=== PATIENT | male | born 1940 | race Caucasian/White ===

== ENCOUNTER 2017-05-24 22:33 | Emergency (ER) | payer OTHER ==
[~2017-05-24] VITALS: Ht 182.9 cm; Wt 85.3 kg
[2017-05-24 22:39] VITALS: BP 164/96; PULSE 75; RESP 14; TEMP 98; O2SAT 95
[2017-05-24] MEDS ORDERED: TRIAMCINOLONE ACETONIDE 40 MG/ML VIAL IM ONE (23:00)
[2017-05-24] MEDS ORDERED: PERM5CRE11 TOPICAL (23:04)
--- NOTE | 2017-05-24 23:04 | PD ---
HPI . Skin problem Chief Complaint: Skin Problem Time Seen by Provider: 22:35 Travel History International Travel<30 days: No Contact w/Intl Traveler<30days: No Traveled to known affect area: No History of Present Illness HPI 76-year-old male complains of having actually pruritic rash over extremities and trunk over the past 2 days. Patient states he had a similar rash about 20 years ago and got a shot for it but does not recall further than those details. Patient denies any fevers chills sweats, nausea, diarrhea, stiff neck, headache. Patient's granddaughter thinks she is developing a similar rash. [facility] Past Medical History Narrative Medical Past medical history reviewed Diminished Hearing: Yes (DEAF; USES SIGN LANGUAGE) Genitourinary: Yes (UNKNOWN PROSTATE Hx DEALING WITH BURNING URINATION) Past Surgical History Genitourinary Surgery: Yes (UNKNOWN PROCEDURE DEALING WITH BURNIING URINATION) Social History Alcohol Use: Yes (RARELY) Tobacco Use: No Substance Use: No Allergies-Medications (Allergen,Severity, Reaction): Coded Allergies: No Known Allergies (Verified , 10/25/15) Reported Meds & Prescriptions Reported Meds & Active Scripts Active No Active Prescriptions or Reported Medications Narrative Medication Allergies and medications reviewed Review of Systems General / Constitutional: No: Fever Eyes: No: Visual changes HENT: No: Headaches Cardiovascular: No: Chest Pain or Discomfort Respiratory: No: Shortness of Breath Gastrointestinal: No: Abdominal Pain Genitourinary: No: Dysuria Musculoskeletal: No: Pain Skin: Positive Rash Neurologic: No: Weakness Psychiatric: No: Depression Endocrine: No: Polydipsia Hematologic/Lymphatic: No: Easy Bruising Physical Exam Narrative GENERAL: Awake alert oriented 3 no acute distress SKIN: Warm and dry. Disseminated rash over patient's extremities and trunk, multiple areas of excoriation secondary to itching. Non-urticarial, not geographic. Small round, some areas are linear HEAD: Atraumatic. Normocephalic. EYES: Pupils equal and round. No scleral icterus. No injection or drainage. ENT: No nasal bleeding or discharge. Mucous membranes pink and moist. NECK: Trachea midline. No JVD. Supple full range of motion CARDIOVASCULAR: Regular rate and rhythm. S1-S2 no murmurs rubs gallops RESPIRATORY: No accessory muscle use. Clear to auscultation. Breath sounds equal bilaterally. GASTROINTESTINAL: Abdomen soft, non-tender, nondistended. Hepatic and splenic margins not palpable. MUSCULOSKELETAL: Extremities without clubbing, cyanosis, or edema. No obvious deformities. NEUROLOGICAL: Awake and alert. No obvious cranial nerve deficits. Motor grossly within normal limits. Five out of 5 muscle strength in the arms and legs. PSYCHIATRIC: Appropriate mood and affect; insight and judgment normal. Data Data Last Documented VS Vital Signs Date Time Temp Pulse Resp B/P (MAP) Pulse Ox O2 Delivery O2 Flow Rate FiO2 05/24/17 22:39 98.0 75 14 164/96 (118) 95 Orders Orders Triamcinolone Inj (Kenalog-40 Inj) (05/24/17 23:00) [facility] Medical Decision Making Medical Screen Exam Complete: Yes Emergency Medical Condition: Yes Medical Record Reviewed: Yes Differential Diagnosis Scabies, contact dermatitis Narrative Course Patient treated with Kenalog shot, as well as prescription for Elimite cream and instructions for doing so. Patient to follow-up with facility clinic/ primary medical doctor. Return for worsening Diagnosis Primary Impression: Scabies Patient Instructions: General Instructions, Scabies (ED) Additional Instructions: Elimite cream once Head To Toe as directed. Repeat in 1 day if necessary. Follow-up with your doctor such as a clinic. Return if worse Scripts Permethrin Topical (Elimite Topical) 5% Cream 1 APPLIC TOPICAL ONCE for Scabies, #1 TUBE 2 Refills Prov: Guillermo Johnson MD 05/24/17 Disposition: 01 DISCHARGE HOME Condition: Stable Guillermo Johnson MD May 24, 2017 23:04
[2017-05-24] MEDS ORDERED: LISI10TA3 PO (23:15)
== END 2017-05-24 23:28 | disposition home or self-care (01) ==
LOC: PHED 22:33
DX: B86 Scabies (principal)
CPT/HCPCS: 96372; 99283; J3301

== ENCOUNTER 2017-07-05 22:41 | Emergency (ER) | payer OTHER ==
[~2017-07-05 22:41] MED LIST: LISI10TA3 PO; PERM5CRE11 TOPICAL
[2017-07-05 22:59] VITALS: BP 141/91; PULSE 80; RESP 20; TEMP 98.4; O2SAT 94
[2017-07-06 00:25] VITALS: BP 146/96; PULSE 65; RESP 16; O2SAT 95
[2017-07-06] MEDS ORDERED: DEXAMETHASONE SOD PHOS 4 MG/ML VIAL IM ONE (00:30)
[2017-07-06] MEDS ORDERED: diphenhydrAMINE HCL 25 MG CAP PO ONE (00:30)
[2017-07-06] MEDS ORDERED: CETI10CA3 PO (00:47)
[2017-07-06] MEDS ORDERED: PRED20 PO (00:47)
[2017-07-06] MEDS ORDERED: ZANT300T PO (00:47)
[2017-07-06] MEDS ORDERED: TRIA.1%T TOPICAL (00:47)
--- NOTE | 2017-07-06 00:47 | PD ---
HPI Chief Complaint: Skin Problem Time Seen by Provider: 00:23 Travel History International Travel<30 days: No Contact w/Intl Traveler<30days: No Traveled to known affect area: No History of Present Illness HPI 76-year-old male complains of itching rash. Patient stated that he started having itching rash about 2 months ago. Patient states the rash started on the lower extremity and started spreading the rest of the body. Patient complaint itching lesion on the scalp also. Patient was seen in emergency room a month ago and was given prescription permethrin without much relief of the problem. Patient lives with family members and nobody at home with a rash. Patient has been trying [id number] itching cream without relief. Patient denies any fever chills. Patient has a dog at home however the dog does not have any fleas. Patient denies any new detergent or shampoos on any chemical exposure recently. 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 PFSH Past Medical History Diminished Hearing: Yes (DEAF; USES SIGN LANGUAGE) Genitourinary: Yes (UNKNOWN PROSTATE Hx DEALING WITH BURNING URINATION) Past Surgical History Genitourinary Surgery: Yes (UNKNOWN PROCEDURE DEALING WITH BURNIING URINATION) Social History Alcohol Use: Yes (RARELY) Tobacco Use: No Substance Use: No Allergies-Medications (Allergen,Severity, Reaction): Coded Allergies: No Known Allergies (Verified , 10/25/15) Reported Meds & Prescriptions Reported Meds & Active Scripts Active Elimite Topical (Permethrin) 5% Cream 1 Applic TOPICAL ONCE Reported Lisinopril 10 Mg Tab 10 Mg PO DAILY Review of Systems General / Constitutional: No: Fever Eyes: No: Visual changes HENT: No: Headaches Cardiovascular: No: Chest Pain or Discomfort Respiratory: No: Shortness of Breath Gastrointestinal: No: Abdominal Pain Genitourinary: No: Dysuria Musculoskeletal: No: Pain Skin: Positive Rash, Positive Itching Neurologic: No: Weakness Psychiatric: No: Depression Endocrine: No: Polydipsia Hematologic/Lymphatic: No: Easy Bruising Physical Exam Narrative GENERAL: Well-nourished, well-developed patient. SKIN: Focused skin assessment warm/dry. HEAD: Normocephalic. EYES: No scleral icterus. No injection or drainage. NECK: Supple, trachea midline. No JVD or lymphadenopathy. CARDIOVASCULAR: Regular rate and rhythm without murmurs, gallops, or rubs. RESPIRATORY: Breath sounds equal bilaterally. No accessory muscle use. GASTROINTESTINAL: Abdomen soft, non-tender, nondistended. MUSCULOSKELETAL: No cyanosis, or edema. BACK: Nontender without obvious deformity. No CVA tenderness. Patient had diffuse papular rash all over trunk and extremity and a few on the scalp. No rash between the fingers of webspace on the hand. Data Data Last Documented VS Vital Signs Date Time Temp Pulse Resp B/P (MAP) Pulse Ox O2 Delivery O2 Flow Rate FiO2 07/05/17 22:59 98.4 80 20 141/91 (108) 94 Orders Orders Dexamethasone Inj (Decadron Inj) (07/06/17 00:30) Diphenhydramine (Benadryl) (07/06/17 00:30) MDM Medical Decision Making Medical Screen Exam Complete: Yes Emergency Medical Condition: Yes Differential Diagnosis Differential diagnosis including contact dermatitis, folliculitis, scabies. Narrative Course 76-year-old male with itching rash for the past 2 months. 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 Decadron 8 mg IM. Benadryl 25 mg p.o. Diagnosis Primary Impression: Contact dermatitis Qualified Codes: L25.9 - Unspecified contact dermatitis, unspecified cause Patient Instructions: General Instructions Additional Instructions: Take medications as directed. Follow-up with merchant banker is persistent problem. Med/Other Pt SpecificInfo: Prescription(s) given Scripts Triamcinolone Topical (Triamcinolone Topical) 0.1% Cream 1 APPLIC TOPICAL BID for Inflammation, #60 GM 0 Refills Prov: Igor Cobos MD 07/06/17 Ranitidine (Zantac) 300 Mg Tab 300 MG PO DAILY, #14 TAB 0 Refills Prov: Igor Cobos MD 07/06/17 Cetirizine HCl (Zyrtec) 10 Mg Capsule 1 TAB PO DAILY for Itching, #14 Prov: Igor Cobos MD 07/06/17 Prednisone (Prednisone) 20 Mg Tab 20 MG PO BID, #20 TAB 0 Refills Prov: Igor Cobos MD 07/06/17 Disposition: 01 DISCHARGE HOME Condition: Stable Igor Cobos MD Jul 06, 2017 00:47
[2017-07-06 01:11] VITALS: BP 152/94
== END 2017-07-06 01:32 | disposition home or self-care (01) ==
LOC: PHED 22:41
DX: L25.9 Unspecified contact dermatitis, unspecified cause (principal); Z79.899 Other long term (current) drug therapy
CPT/HCPCS: 96372; 99283; J1100

== ENCOUNTER 2017-08-27 05:10 | Emergency (ER) | payer OTHER ==
[~2017-08-27] VITALS: Ht 182.9 cm; Wt 83.6 kg
[~2017-08-27 05:10] MED LIST changes: +CETI10CA3 PO; -PERM5CRE11 TOPICAL; +PRED20 PO; +TRIA.1%T TOPICAL; +ZANT300T PO
[2017-08-27 05:23] VITALS: BP 141/73; PULSE 86; RESP 18; TEMP 97.8; O2SAT 95
[2017-08-27 05:49] VITALS: BP 141/73; PULSE 86; RESP 18; TEMP 97.8; O2SAT 95
[2017-08-27] MEDS ORDERED: BETA0.056 TOPICAL (06:01)
[2017-08-27] MEDS ORDERED: [UNRECOGNIZED DRUG - CODE] TOPICAL (06:01)
[2017-08-27] MEDS ORDERED: ATOR40TA16 PO (06:05)
[2017-08-27] MEDS ORDERED: LISI10TA PO (06:05)
[2017-08-27] MEDS ORDERED: LICE1LOT TOPICAL (06:05)
--- NOTE | 2017-08-27 06:07 | PD ---
HPI Chief Complaint: Skin Problem Time Seen by Provider: 05:27 Travel History International Travel<30 days: No Contact w/Intl Traveler<30days: No History of Present Illness HPI 76-year-old male presented the ER for evaluation of rash all over his body, patient was a year multiple times for the same issue and was diagnosed with atopic dermatitis and was given and cetirizine pills with minimal help. Patient says that she tried those medications but still have the rash and states that it is itchy and he cannot control the itchiness he sometimes scratches skin until it bleeds. Patient has no systemic symptoms no fevers chills or night sweats. Patient states he seen a house wirer helper but he does not remember what was a diagnosis. Patient denies any discharge from these rashes, itchiness is worse when he takes one shower, symptoms is been going on for more than 20 years, has been getting worse, tried [id number] cortisone cream and lice treatment to his no help. PFSH Past Medical History High Cholesterol: Yes Diminished Hearing: Yes (DEAF; USES SIGN LANGUAGE) Genitourinary: Yes (UNKNOWN PROSTATE Hx DEALING WITH BURNING URINATION) Hypertension: Yes Past Surgical History Genitourinary Surgery: Yes (UNKNOWN PROCEDURE DEALING WITH BURNIING URINATION) Social History Alcohol Use: Yes (RARELY) Tobacco Use: No Substance Use: No Allergies-Medications (Allergen,Severity, Reaction): Coded Allergies: No Known Allergies (Verified Adverse Reaction, Unknown, 08/27/17) Reported Meds & Prescriptions Reported Meds & Active Scripts Active Triamcinolone Topical (Triamcinolone Acetonide) 0.1% Cream 1 Applic TOPICAL BID Zantac (Ranitidine HCl) 300 Mg Tab 300 Mg PO DAILY Zyrtec (Cetirizine HCl) 10 Mg Capsule 1 Tab PO DAILY Prednisone 20 Mg Tab 20 Mg PO BID Reported Lisinopril 10 Mg Tab 10 Mg PO DAILY Review of Systems Except as stated in HPI: all other systems reviewed are Neg Physical Exam Narrative GENERAL: Alert oriented 3 no acute distress SKIN: Multiple erythematous rashes with some silver scaling over the arms, chest , back, legs with some bleeding from scratching, no discharge or area of induration. HEAD: Atraumatic. Normocephalic. EYES: Pupils equal and round. No scleral icterus. No injection or drainage. ENT: No nasal bleeding or discharge. Mucous membranes pink and moist. NECK: Trachea midline. No JVD. CARDIOVASCULAR: Regular rate and rhythm. No murmur appreciated. RESPIRATORY: No accessory muscle use. Clear to auscultation. Breath sounds equal bilaterally. GASTROINTESTINAL: Abdomen soft, non-tender, nondistended. Hepatic and splenic margins not palpable. MUSCULOSKELETAL: No obvious deformities. No clubbing. No cyanosis. No edema. NEUROLOGICAL: Awake and alert. No obvious cranial nerve deficits. Motor grossly within normal limits. Normal speech. PSYCHIATRIC: Appropriate mood and affect; insight and judgment normal. Data Data Last Documented VS Vital Signs Date Time Temp Pulse Resp B/P (MAP) Pulse Ox O2 Delivery O2 Flow Rate FiO2 08/27/17 05:23 97.8 86 18 141/73 (95) 95 MDM Medical Decision Making Medical Screen Exam Complete: Yes Emergency Medical Condition: Yes Differential Diagnosis Atopic dermatitis, psoriasis, contact dermatitis. Narrative Course 76-year-old male presented here for evaluation of a rash. Patient says his rash started more than 20 years ago he was here multiple times and was prescribed cortisone cream and was given cetirizine pill this is that he says did not help. Unsure the patient seen house wirer helper or not because I asked him multiple times and he says that he seen house wirer helper but he does not know what the diagnosis is. I discussed with him that the inside sales supervisor office is the best place to evaluate him for his condition since they have the equipment and they may need to take a biopsy of the skin lesions for microscopic examination. Meanwhile I prescribed the patient stronger steroid cream as well as coal tar to see if that helps. His condition could be atopic dermatitis or could be psoriasis for now there is no need for antibiotic use since I do not see any areas of induration or any concern for infection meanwhile a suggested chlorine bath once weekly to prevent bacterial superinfection and he can follow-up with the house wirer helper to give him the name for his a clinic and patient has clear instructions on what to do and he understands. Patient is stable to be discharged. 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 Scripts Jackson Tar Extract Topical (Neutrogena T/Gel Topical) 0.5% Sham 1 APPLIC TOPICAL DIRECTED for Dandruff, #14 ML 0 Refills Prov: Augusto Schaffer MD 08/27/17 Betamethasone Dipropionate Topical (Betamethasone Dipropionate Topical) 0.05% Lotn 1 APPLIC TOPICAL BID for Dermatoses, #60 ML 0 Refills Prov: Augusto Schaffer MD 08/27/17 Disposition: 01 DISCHARGE HOME Condition: Stable Augusto Schaffer MD Aug 27, 2017 06:07
== END 2017-08-27 06:28 | disposition home or self-care (01) ==
LOC: PHED 05:10
DX: L20.9 Atopic dermatitis, unspecified (principal); E78.00 Pure hypercholesterolemia, unspecified; H91.3 Deaf nonspeaking, not elsewhere classified; I10 Essential (primary) hypertension; Z79.899 Other long term (current) drug therapy
CPT/HCPCS: 99283